=== PATIENT | female | born 1985 | race Caucasian/White ===

== ENCOUNTER → 2017-01-29 | Outpatient (CLI) | payer MEDICAID ==
--- NOTE | 2017-01-30 07:48 | US ---
EXAMINATION TYPE: US transvaginal DATE OF EXAM: 01/29/2017 COMPARISON: Previous study dated 08/02/2014. CLINICAL HISTORY: N94.6 Dysmenorrhea, N92.1 Menorrhagia. TECHNIQUE: Transvaginal (TV) Date of LMP: 12/25/16 EXAM MEASUREMENTS: Uterus: 9.1 cm Endometrial Stripe: 0.5 cm Right Ovary: obscured by overlying bowel Left Ovary: obscured by overlying bowel 1. Uterus: Anteverted wnl 2. Endometrium: wnl 3. Right Ovary: Obscured by overlying bowel gas 4. Left Ovary: Obscured by overlying bowel gas 5. Bilateral Adnexa: wnl 6. Posterior cul-de-sac: wnl IMPRESSION: NORMAL PELVIC ULTRASOUND.
== END | disposition home or self-care (01) ==
LOC: RADUSMAIN 15:57
PROVIDERS: ATTEND Obstetrics & Gynecology
DX: N94.6 Dysmenorrhea, unspecified (principal); N92.1 Excessive and frequent menstruation with irregular cycle
CPT/HCPCS: 76830

== ENCOUNTER → 2017-02-06 | Outpatient (CLI) | payer MEDICAID ==
[2017-02-06 15:43] LABS: Basophils # (A) 0.1 k/uL (0-0.2); Basophils % (A) 1 %; CH 31.7; CHCM 36.9; Eosinophils # (A) 0.1 k/uL (0-0.7); Eosinophils % (A) 1 %; HCT 36.1 % (34.0-46.0); HDW 3.15; HGB 12.8 gm/dL (11.4-16.0); Luc # (Auto) 0.15; Luc % (Auto) 1; Lymphocytes # (A) 4.1 k/uL (1.0-4.8); Lymphocytes % (A) 38 %; MCH 30.6 pg (25.0-35.0); MCHC 35.4 g/dL (31.0-37.0); MCV 86.4 fL (80.0-100.0); Monocytes # (A) 0.3 k/uL (0-1.0); Monocytes % (A) 3 %; Neutrophils % (A) 56 %; RBC 4.17 m/uL (3.80-5.40); RDW 14.2 % (11.5-15.5); WBC 10.7 k/uL (3.8-10.6); WBC (Perox) 10.18
[2017-02-06 16:02] LABS: Anion Gap 10 mmol/L; Blood Urea Nitrogen 7 mg/dL (7-17); Carbon Dioxide 26 mmol/L (22-30); Chloride 104 mmol/L (98-107); Glucose 87 mg/dL (74-99); Non-African American GFR(MDRD) >60 (>60 ml/min/1.73 sqM); Potassium 3.8 mmol/L (3.5-5.1); Sodium 140 mmol/L (137-145)
== END | disposition home or self-care (01) ==
LOC: LABPAT 15:11
PROVIDERS: ATTEND Obstetrics & Gynecology
DX: Z01.812 Encounter for preprocedural laboratory examination (principal); N92.1 Excessive and frequent menstruation with irregular cycle; N94.6 Dysmenorrhea, unspecified
CPT/HCPCS: 36415; 80051; 82565; 82947; 84520; 85025; 87086

== ENCOUNTER 2017-02-22 06:02 | Observation (INO) | payer MEDICAID ==
[2017-02-18 09:53] VITALS: BMI 35.3
[~2017-02-22 06:02] MED LIST: DEXAMETHASONE SOD PHOSPHATE 10 MG/ML 1 ML VIAL IV ONE; MIDAZOLAM 2 MG/2 ML VIAL IV PRN; ONDANSETRON 4 MG/2 ML VIAL IVP ONE; SCOPOLAMINE 1.5MG/72HR PATCH TRANSDERM ONE; ceFAZolin 2 GM in SODIUM CHLORIDE 0.9% 100 ML IVPB ONE
[2017-02-22] MEDS: LACTATED RINGERS 1,000 ML IV SCH ×4 (06:32→23:16)
[2017-02-22] MEDS ORDERED: LIDOCAINE 1% 20 ML VIAL (10MG/ML) FOR IV START INTRADERMA ONE (06:32)
[2017-02-22] MEDS ORDERED: BUPIVACAINE (PF) 0.5% 30 ML VIAL SQ ONE (07:24)
[2017-02-22] MEDS ORDERED: PROPOFOL 10 MG/ML 20 ML VIAL IV ONE (07:33)
[2017-02-22] MEDS ORDERED: VECURONIUM 10 MG VIAL IV ONE (07:33)
[2017-02-22] MEDS ORDERED: MIDAZOLAM 2 MG/2 ML VIAL ONE (07:33)
[2017-02-22] MEDS ORDERED: KETOROLAC 30 MG/ML 1 ML VIAL ONE (07:33)
[2017-02-22] MEDS ORDERED: GLYCOPYRROLATE 0.2 MG/ML 2 ML VIAL ONE (07:33)
[2017-02-22] MEDS ORDERED: SUCCINYLCHOLINE CHLORIDE 100 MG/5 ML SYR IV ONE (07:33)
[2017-02-22] MEDS ORDERED: NEOSTIGMINE 1 MG/ML 10 ML VIAL ONE (07:33)
[2017-02-22] MEDS ORDERED: fentaNYL (PF) 50 MCG/ML 2 ML AMP ONE (07:33)
[2017-02-22] MEDS ORDERED: LIDOCAINE 1% INJ 10MG/ML (20 ML MDV) ONE (07:33)
[2017-02-22] MEDS ORDERED: ePHEDrine 50 MG/ML 1 ML AMP ONE (07:33)
[2017-02-22] MEDS ORDERED: VASOPRESSIN 20 UNIT/ML 1 ML VIAL SQ ONE (08:15)
[2017-02-22] MEDS ORDERED: IBUPROFEN 600 MG TAB PO PRN (08:39)
[2017-02-22] MEDS ORDERED: SIMETHICONE 80 MG CHEWABLE PO PRN (08:39)
[2017-02-22] MEDS ORDERED: Acetaminophen-Codeine 300-30mg TAB PO PRN (08:39)
[2017-02-22] MEDS ORDERED: METOCLOPRAMIDE 5 MG/ML 2 ML VIAL IVP PRN (08:39)
[2017-02-22] MEDS ORDERED: diphenhydrAMINE 50 MG/ML 1 ML VIAL IVP PRN (08:39)
--- NOTE | 2017-02-22 08:52 | P.OP ---
Date of Procedure: 02/22/17 Preoperative Diagnosis: #1. Menometrorrhagia #2. Severe dysmenorrhea Postoperative Diagnosis: Same Procedure(s) Performed: #1. Vaginal hysterectomy Implants: Anesthesia: DAKOTAA Surgeon: Praneeth Cleaning Billing Control Clerk #1: Laura Colby Estimated Blood Loss (ml): 50 IV fluids (ml): 900 Urine output (ml): 350 Pathology: other (Uterus) Condition: stable Disposition: PACU Indications for Procedure: Operative Findings: Preoperative pelvic examination demonstrated a roughly 5 week midplane normal uterus with normal adnexa bilaterally. After preparing the patient for da Mary approach, a tenaculum was applied to the cervix and traction applied. There was noted to be adequate descensus to approach the case as a vaginal hysterectomy rather then laparoscopic. As result the case was changed to a straightforward vaginal hysterectomy. Intraoperatively, the ovaries were normal bilaterally. Description of Procedure: The patient was prepped and draped in usual fashion after general endotracheal anesthesia was administered by the anesthesiologist. A weighted speculum was placed and the anterior lip of the cervix grasped with a single-tooth tenaculum. Traction demonstrated adequate descensus for a vaginal approach. As result, the da Mary approach was abandoned. The bladder was drained of approximately 300 mL of clear dai urine. The cervicovaginal mucosa was infused circumferentially with diluted vasopressin. It was then incised with a scalpel circumferentially. The mucosa was then reflected the bluntly. The posterior peritoneum was identified and incised sharply with the Duong scissors. It was then tagged with a 2-0 Vicryl stitch for later use. The short weighted speculum was replaced with the long weighted speculum. Curved Dyllan- Leblanc clamps were utilized to clamp the uterosacral ligaments on each side. Each was cut and suture-ligated with a transfixion stitch of 0 Vicryl. Serial bites were taken up the cardinal ligament on each side using curved Dyllan-Leblanc clamps. Each was cut and suture ligated with transfixion stitches of 0 Vicryl. After several stitches on each side, the uterus was inverted posteriorly and the anterior peritoneum was noted to have been entered during the dissection. This isolated the utero-ovarian ligaments on each side which were clamped with curved Dyllan-Leblanc clamps, cut, and suture- ligated with a transfixion stitch of 0 Vicryl followed by a free tie of 0 Vicryl. Hemostasis on these pedicles was excellent. They were then released into the abdomen. The long weighted speculum was replaced the short weighted speculum and the previously placed stitch of 2-0 Vicryl utilized to close the parietal peritoneum in a pursestring fashion. The uterosacral ligaments were then passed through the contralateral ligaments and vaginal mucosa bilaterally in a modified Mcgee's culdoplasty. The intervening open vaginal mucosa was closed with interrupted [id number] stitches. Estimated blood loss for the case was approximately 50 mL. There were no complications. The vagina was packed with one-inch iodophor gauze covered with bacitracin ointment after placing a Elliott catheter. All sponge, instrument, and needle counts were correct. The patient tolerated the procedure well and proceeded to the recovery room in stable condition.
[2017-02-22] MEDS: HYDROmorphone 1 MG/ML 1 ML SYRINGE IVP PRN ×4 (09:03→09:22)
[2017-02-22] MEDS: ONDANSETRON 4 MG/2 ML VIAL IVP PRN ×2 (09:04→17:31)
[2017-02-22] MEDS ORDERED: MEPERIDINE 50 MG/ML SYRINGE IVP ONE (09:27)
[2017-02-22] MEDS: SENNOSIDES-DOCUSATE SODIUM 1 EACH TAB PO SCH ×2 (10:08→20:34)
[2017-02-22] MEDS: Acetaminophen-Codeine 300-30mg TAB PO PRN ×3 (12:06→20:34)
[2017-02-22] MEDS: KETOROLAC 30 MG/ML 1 ML VIAL IVP PRN ×2 (14:41→20:33)
--- NOTE | 2017-02-23 06:24 | P.DS ---
Providers Date of admission: 02/22/17 19:56 Expected date of discharge: 02/23/17 Attending physician: Praneeth Cleaning Primary care physician: [facility] Course: This is a 31-year-old white female 2 para 2001 who presented with a history of severe dysmenorrhea, menometrorrhagia, requesting definitive surgical palliation. Please see dictated history and physical for details. Patient was admitted and underwent vaginal hysterectomy under the care of Dr. Cleaning yesterday. She did well intraoperatively, ovaries appeared normal to inspection and therefore were left in situ per her wishes. Vagina was packed with iodoform gauze, Elliott catheter placed. Please see dictated operative note for details. This morning the patient's doing very well. The Elliott catheter and vaginal packing had been removed. There is no vaginal drainage. Pain is well tolerated. She is passing flatus and ambulating without difficulty. Vital signs are stable and she is afebrile. There is no CVA tenderness. Extremities are negative for edema. Chest is clear in all steiner. Abdomen is soft and nontender. Patient will be discharged home later today. She will follow-up with Dr. Cleaning in the office in 2 weeks. I have reminded her no intercourse, tampons or douching. She will use wovs-poa-ajurscf ibuprofen products as needed for pain. She will call with any fevers shakes or chills, foul smelling or bloody vaginal discharge, with any pain not alleviated by kdgb-yoz-xsmxieu products, or indeed with any difficulties or concerns. Patient Condition at Discharge: Good Plan - Discharge Summary New Discharge Prescriptions: No Action Levothyroxine Sodium [Synthroid] 75 mcg PO DAILY Discharge Medication List Levothyroxine Sodium [Synthroid] 75 mcg PO DAILY 08/27/14 [History] Follow up Appointment(s)/Referral(s): Praneeth Cleaning MD [STAFF PHYSICIAN] - 2 Weeks Discharge Disposition: HOME SELF-CARE
[2017-02-23] MEDS: LACTATED RINGERS 1,000 ML IV SCH (07:23)
[2017-02-23 07:36] LABS: Basophils % (A) 0 %; CH 31.1; CHCM 36.4; Eosinophils % (A) 0 %; HCT 34.3 % (34.0-46.0); HDW 3.13; HGB 12.2 gm/dL (11.4-16.0); Luc # (Auto) 0.14; Luc % (Auto) 1; Lymphocytes # (A) 3.3 k/uL (1.0-4.8); Lymphocytes % (A) 27 %; MCH 30.7 pg (25.0-35.0); MCHC 35.7 g/dL (31.0-37.0); MCV 86.1 fL (80.0-100.0); Mean Platelet Volume 7.8; Monocytes # (A) 0.4 k/uL (0-1.0); Monocytes % (A) 4 %; Neutrophils # (A) 8.2 k/uL (1.3-7.7); Neutrophils % (A) 68 %; RBC 3.98 m/uL (3.80-5.40); RDW 13.7 % (11.5-15.5); WBC 12.1 k/uL (3.8-10.6); WBC (Perox) 12.75
[2017-02-23] MEDS: Acetaminophen-Codeine 300-30mg TAB PO PRN (07:43)
[2017-02-23] MEDS: SENNOSIDES-DOCUSATE SODIUM 1 EACH TAB PO SCH (08:09)
[2017-02-23 08:22] VITALS: BP 110/88; PULSE 80; RESP 18; TEMP 98.7
== END 2017-02-23 08:24 | disposition home or self-care (01) ==
LOC: OR 06:02 → 6PED 08:45 → OR 19:56
PROVIDERS: ADMIT Obstetrics & Gynecology; ATTEND Obstetrics & Gynecology
DX: N94.6 Dysmenorrhea, unspecified (principal); N92.1 Excessive and frequent menstruation with irregular cycle; N72 Inflammatory disease of cervix uteri; N84.1 Polyp of cervix uteri; N80.8 Other endometriosis; E03.9 Hypothyroidism, unspecified; Z79.899 Other long term (current) drug therapy
CPT/HCPCS: 58260; 81025; 86900; 86901; 85025; 86850; 88342; 88307; G0378 ×2; J2250; J1100; J2710; J2175; J0690; J2405; J2001; J3010; J1885; J1170; J0330; J2704

== ENCOUNTER → 2023-02-08 | Outpatient (CLI) | payer MEDICAID, OTHER ==
--- NOTE | 2023-02-08 17:14 | MM ---
Reason for Exam: Screening (asymptomatic). Baseline mammogram. Patient History: Menarche at age 13. First Full-Term at age 25. Hysterectomy at age 31. Postmenopausal. Patient has history of breast feeding. Patient used Hormonal Contraceptives for 10 years. Risk Values: Gricelda 5 year model risk: 0.3%. NCI Lifetime model risk: 9.2%. Prior Study Comparison: Patient's first Mammogram. Tissue Density: The breast tissue is extremely dense which could obscure a lesion on mammography. Findings: Analyzed By CAD. Pattern appears symmetrical. There are scattered benign punctate calcifications within the left breast. There is an irregular density within the outer aspect right breast middle to slightly inferior position. Additional workup is recommended with compression and rolled views. No suspicious spiculated or lobular masses clustered microcalcifications or architectural distortion within the left breast is evident. Overall Assessment: Incomplete: need additional imaging evaluation, BI-RAD 0 Management: Diagnostic Mammogram of the right breast. A negative mammogram report should not preclude additional follow up of suspicious palpable abnormalities. Patient should continue monthly self breast exam. A clinical breast exam by your physician is recommended on an annual basis and results should be correlated with mammographic findings. Electronically signed and approved by: Steven Padilla D.O. Radiologis
== END | disposition home or self-care (01) ==
LOC: RADMAMWWP 07:02
PROVIDERS: ATTEND Obstetrics & Gynecology
DX: Z12.31 Encounter for screening mammogram for malignant neoplasm of breast (principal); Z78.0 Asymptomatic menopausal state
CPT/HCPCS: 77063; 77067

== ENCOUNTER → 2023-02-15 | Outpatient (CLI) | payer OTHER ==
--- NOTE | 2023-02-15 07:21 | MM ---
Reason for Exam: Additional evaluation requested from abnormal screening. Last screening mammogram was performed less than 1 month ago. Patient History: Menarche at age 13. First Full-Term at age 25. Hysterectomy at age 31. Postmenopausal. Patient has history of breast feeding. Patient used Hormonal Contraceptives for 10 years. Risk Values: Gricelda 5 year model risk: 0.3%. NCI Lifetime model risk: 9.2%. Prior Study Comparison: 02/03/2009 Right Diagnostic Ultrasound, [facility]. 02/08/2023 Bilateral MG 3D screening mammo w/cad, [facility]. Tissue Density: Right: The breast tissue is extremely dense which could obscure a lesion on mammography. Findings: Analyzed By CAD. Area of concern within the right breast laterally compressed out on spot compression 3-D imaging. No new suspicious masses, calcifications or distortions. Overall Assessment: Benign, BI-RAD 2 Management: Screening Mammogram of both breasts in 1 year. Results were given to the patient verbally at the time of exam. Patient should continue monthly self-breast exams. A clinical breast exam by your physician is recommended on an annual basis. This exam should not preclude additional follow-up of suspicious palpable abnormalities. Note on Gricelda scores and lifetime risk: 1. A Gricelda score greater than 3% is considered moderate risk. If this is the case, consider specialist referral to assess eligibility for a risk reducing agent. 2. If overall lifetime risk for the development of breast cancer is 20% or higher, the patient may qualify for future screening with alternating mammogram and breast MRI. Electronically signed and approved by: Salty Mcconnell DO
== END | disposition home or self-care (01) ==
LOC: RADMAMWWP 06:51
PROVIDERS: ATTEND Obstetrics & Gynecology
DX: R92.8 Other abnormal and inconclusive findings on diagnostic imaging of breast (principal); Z78.0 Asymptomatic menopausal state
CPT/HCPCS: 77061; 77065